=== PATIENT | female | born 1995 ===

== ENCOUNTER 2020-04-01 15:43 | Outpatient (CLI) | payer MEDICAID ==
--- NOTE | 2020-04-01 16:19 | ULT ---
ULTRASOUND PELVIC ULTRASOUND TRANSVAGINAL DOPPLER DUPLEX: DATE: 04/01/2020 HISTORY: 24-year-old female with pelvic pain TECHNIQUE: Transabdominal transducer and endovaginal transducer used to visualize intrapelvic contents with anderson scale, color-flow, and spectral analysis. FINDINGS: Uterus is normal in size and shape. Endometrial stripe is of normal thickness 4 mm. No uterine leiomyoma is identified. Bilateral ovaries are normal in size. Blood flow is demonstrated in right ovary. Unable to obtain flow in left ovary due to its posterior position.. No ovarian cyst 2 cm or larger is identified. No free fluid is identified in the cul-de-sac. IMPRESSION: Normal
== END 2020-04-01 15:44 | disposition home or self-care (01) ==
LOC: BICULT 15:43
PROVIDERS: ATTEND Nurse Practitioner Women's Health
DX: R10.2 Pelvic and perineal pain (principal)
CPT/HCPCS: 76856